=== PATIENT | male | born 1995 | race African-American/Black ===

== ENCOUNTER 2019-08-10 08:43 | Emergency (ER) | payer MEDICAID ==
[~2019-08-10] VITALS: Ht 177.8 cm; Wt 100.0 kg
[2019-08-10 09:30] LABS: BASOPHILS % 0.7 % (0.0-2.0); EOSINOPHILS % 0.3 % (0.0-5.0); HEMATOCRIT. 42.3 % (42.0-52.0); HEMOGLOBIN. 14.4 g/dL (14.0-18.0); LYMPHOCYTES % 27.8 % (20.0-50.0); MEAN CORPUSCULAR HEMOGLOBIN 27.8 pg (28.0-32.0); MEAN CORPUSCULAR VOLUME 81.8 fL (80.0-94.0); MONOCYTES % 8.2 % (2.0-8.0); PLATELET 229 x1000/uL (130-400); RED BLOOD CELL COUNT 5.17 mill/uL (4.7-6.1); RED CELL DISTRIBUTION WIDTH 13.6 % (11.6-14.6)
[2019-08-10 09:31] LABS: CHLORIDE 107 mEq/L (98-107)
[2019-08-10 09:36] LABS: ETHANOL BLOOD < 10 mg/dL
[2019-08-10] MEDS ORDERED: OLANZAPINE 10MG TABLET PO STA (10:10)
[2019-08-10] MEDS ORDERED: LORAZEPAM 1MG TABLET PO ONE (10:15)
[2019-08-10 10:37] LABS: CLARITY URINE CLEAR (CLEAR); COLOR URINE YELLOW (YELLOW); KETONES URINE 1+ (NEGATIVE); LEUKOCYTE ESTERASE URINE NEGATIVE (NEGATIVE); METHADONE URINE SCREEN NEGATIVE (NEGATIVE); NITRITE URINE NEGATIVE (NEGATIVE); OCCULT BLOOD URINE NEGATIVE (NEGATIVE); OPIATES URINE SCREEN NEGATIVE (NEGATIVE); PHENCYCLIDINE URINE SCREEN NEGATIVE (NEGATIVE); PROTEIN URINE NEGATIVE (NEGATIVE); SPECIFIC GRAVITY URINE 1.019 (1.005-1.030)
[2019-08-10 10:38] LABS: *AMPHETAMINES SCREEN URINE NEGATIVE (NEGATIVE); *BARBITURATES SCREEN URINE NEGATIVE (NEGATIVE); *BENZODIAZEPINES SCREEN URINE NEGATIVE (NEGATIVE); *COCAINE SCREEN URINE NEGATIVE (NEGATIVE); CANNABINOID URINE SCREEN NEGATIVE (NEGATIVE)
[2019-08-10] MEDS ORDERED: OLANZAPINE 10 MG/VIAL IM ONE (22:00)
[2019-08-11] MEDS ORDERED: OLANZAPINE 10MG TABLET PO SCH (09:00)
[2019-08-11 15:55] VITALS: BP 112/66
== END 2019-08-11 15:55 | disposition home or self-care (01) ==
LOC: ER 08:43
DX: F23 Brief psychotic disorder (principal); R44.0 Auditory hallucinations; R41.82 Altered mental status, unspecified; F20.9 Schizophrenia, unspecified; F11.10 Opioid abuse, uncomplicated
CPT/HCPCS: 36415; 80053; 80305; 80320; 81003; 82962; 85025; 99284; J3490; Z7610; G0480

== ENCOUNTER 2019-08-25 10:35 | Emergency (ER) | payer MEDICAID ==
[~2019-08-25] VITALS: Ht 177.8 cm; Wt 70.0 kg
[2019-08-25] MEDS ORDERED: LIDOCAINE HCL/PF 1% 10 MG/ML 5ML VIAL IJ ONE (11:15)
[2019-08-25] MEDS ORDERED: TETANUS, DIPHTHERIA, PERTUSSIS VAC/PF 0.5ML (>7YR OLD) IM ONE (11:15)
[2019-08-25 11:26] LABS: BASOPHILS % 1.1 % (0.0-2.0); EOSINOPHILS % 0.7 % (0.0-5.0); HEMATOCRIT. 42.4 % (42.0-52.0); HEMOGLOBIN. 14.3 g/dL (14.0-18.0); LYMPHOCYTES % 18.5 % (20.0-50.0); MEAN CORPUSCULAR HEMOGLOBIN 27.5 pg (28.0-32.0); MEAN CORPUSCULAR VOLUME 81.5 fL (80.0-94.0); MEAN PLATELET VOLUME 9.7 fl (7.4-10.4); MONOCYTES % 9.6 % (2.0-8.0); NEUTROPHILS % 70.1 % (40.0-76.0); PLATELET 260 x1000/uL (130-400); RED CELL DISTRIBUTION WIDTH 13.8 % (11.6-14.6)
[2019-08-25 11:29] LABS: CHLORIDE 103 mEq/L (98-107)
[2019-08-25 11:34] LABS: ETHANOL BLOOD < 10 mg/dL
[2019-08-25] MEDS ORDERED: OLANZAPINE 5MG TABLET PO STA (12:48)
[2019-08-25 13:09] LABS: CLARITY URINE CLEAR (CLEAR); COLOR URINE YELLOW (YELLOW); KETONES URINE 3+ (NEGATIVE); LEUKOCYTE ESTERASE URINE TRACE (NEGATIVE); NITRITE URINE NEGATIVE (NEGATIVE); OCCULT BLOOD URINE NEGATIVE (NEGATIVE); PROTEIN URINE TRACE (NEGATIVE); SPECIFIC GRAVITY URINE 1.039 (1.005-1.030)
[2019-08-25 14:00] LABS: *AMPHETAMINES SCREEN URINE NEGATIVE (NEGATIVE); *BARBITURATES SCREEN URINE NEGATIVE (NEGATIVE); *BENZODIAZEPINES SCREEN URINE NEGATIVE (NEGATIVE)
[2019-08-25 14:01] LABS: *COCAINE SCREEN URINE NEGATIVE (NEGATIVE); CANNABINOID URINE SCREEN NEGATIVE (NEGATIVE); METHADONE URINE SCREEN NEGATIVE (NEGATIVE); OPIATES URINE SCREEN NEGATIVE (NEGATIVE); PHENCYCLIDINE URINE SCREEN NEGATIVE (NEGATIVE)
[2019-08-25] MEDS ORDERED: OLANZAPINE 10 MG/VIAL IM ONE (14:30)
[2019-08-26 12:45] VITALS: BP 120/60
== END 2019-08-26 13:15 | disposition home or self-care (01) ==
LOC: ER 10:35
DX: S61.411A Laceration without foreign body of right hand, initial encounter (principal); F23 Brief psychotic disorder; W22.8XXA Striking against or struck by other objects, initial encounter; W25.XXXA Contact with sharp glass, initial encounter; Y93.89 Activity, other specified; Y92.018 Other place in single-family (private) house as the place of occurrence of the external cause
CPT/HCPCS: 12002; 36415; 73130; 80053; 80305; 80320; 81003; 85025; 90471; 90715; 96372; 99285; A4217; J3490; Z7610; G0480

== ENCOUNTER 2020-06-28 20:45 | Emergency (ER) | payer MEDICAID ==
[~2020-06-28] VITALS: Ht 188 cm; Wt 84.0 kg
[2020-06-28 21:49] LABS: BASOPHILS % 1.3 % (0.0-2.0); EOSINOPHILS % 0.5 % (0.0-5.0); HEMATOCRIT. 38.5 % (42.0-52.0); HEMOGLOBIN. 12.9 g/dL (14.0-18.0); LYMPHOCYTES % 27.9 % (20.0-50.0); MEAN CORPUSCULAR HEMOGLOBIN 27.4 pg (28.0-32.0); MEAN CORPUSCULAR VOLUME 81.7 fL (80.0-94.0); MEAN PLATELET VOLUME 9.3 fl (7.4-10.4); MONOCYTES % 8.7 % (2.0-8.0); NEUTROPHILS % 61.6 % (40.0-76.0); PLATELET 229 x1000/uL (130-400); RED BLOOD CELL COUNT 4.72 mill/uL (4.7-6.1)
[2020-06-28 21:54] LABS: CLARITY URINE CLEAR (CLEAR); COLOR URINE DARK YELLOW (YELLOW); KETONES URINE 2+ (NEGATIVE); LEUKOCYTE ESTERASE URINE TRACE (NEGATIVE); NITRITE URINE NEGATIVE (NEGATIVE); OCCULT BLOOD URINE NEGATIVE (NEGATIVE); PH URINE 5.5 (4.5-8.0); PROTEIN URINE TRACE (NEGATIVE); SPECIFIC GRAVITY URINE 1.035 (1.005-1.030)
[2020-06-28 21:58] LABS: CHLORIDE 107 mEq/L (98-107)
[2020-06-28 22:00] LABS: INR 1.1; PROTHROMBIN TIME 11.4 sec (9.6-11.0)
[2020-06-28 22:02] LABS: ETHANOL BLOOD < 10 mg/dL
[2020-06-28 22:06] LABS: CREATINE KINASE 248 IU/L (39-308)
[2020-06-28 22:25] LABS: *AMPHETAMINES SCREEN URINE NEGATIVE (NEGATIVE); *BARBITURATES SCREEN URINE NEGATIVE (NEGATIVE); *BENZODIAZEPINES SCREEN URINE NEGATIVE (NEGATIVE); *COCAINE SCREEN URINE NEGATIVE (NEGATIVE); CANNABINOID URINE SCREEN NEGATIVE (NEGATIVE); PHENCYCLIDINE URINE SCREEN NEGATIVE (NEGATIVE)
[2020-06-28 22:26] LABS: METHADONE URINE SCREEN NEGATIVE (NEGATIVE); OPIATES URINE SCREEN NEGATIVE (NEGATIVE)
[2020-06-29] MEDS ORDERED: OLANZAPINE 5MG TABLET ODT PO ONE
[2020-06-29 17:00] VITALS: BP 120/73
== END 2020-06-29 16:55 | disposition home or self-care (01) ==
LOC: ER 20:45
DX: R44.0 Auditory hallucinations (principal); E87.6 Hypokalemia
CPT/HCPCS: 36415; 71045; 80053; 80305; 80307; 80320; 80329; 81003; 82140; 82550; 83605; 84443; 85025; 93005; 99285; G0480

== ENCOUNTER 2020-08-08 20:10 | Emergency (ER) | payer MEDICAID ==
[~2020-08-08] VITALS: Ht 180.3 cm; Wt 91.0 kg
[2020-08-08 21:17] LABS: BASOPHILS % 0.5 % (0.0-2.0); EOSINOPHILS % 0.8 % (0.0-5.0); HEMATOCRIT. 37.9 % (42.0-52.0); HEMOGLOBIN. 12.9 g/dL (14.0-18.0); LYMPHOCYTES % 27.5 % (20.0-50.0); MEAN CORPUSCULAR HEMOGLOBIN 28.3 pg (28.0-32.0); MEAN CORPUSCULAR VOLUME 82.7 fL (80.0-94.0); MEAN PLATELET VOLUME 9.5 fl (7.4-10.4); MONOCYTES % 8.9 % (2.0-8.0); NEUTROPHILS % 62.3 % (40.0-76.0); PLATELET 268 x1000/uL (130-400); RED BLOOD CELL COUNT 4.58 mill/uL (4.7-6.1)
[2020-08-08 21:19] LABS: CHLORIDE 105 mEq/L (98-107)
[2020-08-08 21:24] LABS: ETHANOL BLOOD < 10 mg/dL
[2020-08-08 22:05] LABS: CLARITY URINE CLEAR (CLEAR); COLOR URINE YELLOW (YELLOW); KETONES URINE TRACE (NEGATIVE); LEUKOCYTE ESTERASE URINE NEGATIVE (NEGATIVE); NITRITE URINE NEGATIVE (NEGATIVE); OCCULT BLOOD URINE NEGATIVE (NEGATIVE); PH URINE 5.5 (4.5-8.0); PROTEIN URINE NEGATIVE (NEGATIVE); SPECIFIC GRAVITY URINE 1.036 (1.005-1.030)
[2020-08-08 22:18] LABS: *AMPHETAMINES SCREEN URINE NEGATIVE (NEGATIVE); *BARBITURATES SCREEN URINE NEGATIVE (NEGATIVE); *BENZODIAZEPINES SCREEN URINE NEGATIVE (NEGATIVE); *COCAINE SCREEN URINE NEGATIVE (NEGATIVE); METHADONE URINE SCREEN NEGATIVE (NEGATIVE); OPIATES URINE SCREEN NEGATIVE (NEGATIVE)
[2020-08-08 22:19] LABS: CANNABINOID URINE SCREEN NEGATIVE (NEGATIVE); PHENCYCLIDINE URINE SCREEN NEGATIVE (NEGATIVE)
[2020-08-08] MEDS ORDERED: LORAZEPAM 2MG/ML CPJ IM STA (23:48)
[2020-08-09] MEDS ORDERED: HALOPERIDOL LACTATE 5MG/ML VIAL IM ONE
[2020-08-09] MEDS ORDERED: OLANZAPINE 10 MG/VIAL IM ONE (03:15)
[2020-08-09 11:44] VITALS: BP 117/59
== END 2020-08-09 11:46 | disposition home or self-care (01) ==
LOC: ER 20:10
DX: T42.6X2A Poisoning by other antiepileptic and sedative-hypnotic drugs, intentional self-harm, initial encounter (principal); F20.9 Schizophrenia, unspecified; Z78.1 Physical restraint status; Y92.018 Other place in single-family (private) house as the place of occurrence of the external cause
CPT/HCPCS: 36415; 80053; 80305; 80307; 80320; 80329; 81003; 85025; 93005; 96372; 99285; J1630; J2060; J3490; G0480

== ENCOUNTER 2022-02-10 19:06 | Emergency (ER) | payer MEDICAID ==
[~2022-02-10] VITALS: Ht 177.8 cm; Wt 91.0 kg
[2022-02-10] MEDS ORDERED: TETANUS, DIPHTHERIA, PERTUSSIS VAC/PF 0.5ML (>10YR OLD) IM ONE (20:15)
[2022-02-10 21:15] LABS: BASOPHILS % 0.7 % (0.0-2.0); EOSINOPHILS % 0.3 % (0.0-5.0); HEMATOCRIT. 42.3 % (42.0-52.0); HEMOGLOBIN. 14.5 g/dL (14.0-18.0); LYMPHOCYTES % 13.1 % (20.0-50.0); MEAN CORPUSCULAR HEMOGLOBIN 27.7 pg (28.0-32.0); MEAN CORPUSCULAR VOLUME 80.9 fL (80.0-94.0); MEAN PLATELET VOLUME 9.6 fl (7.4-10.4); MONOCYTES % 7.1 % (2.0-8.0); NEUTROPHILS % 78.8 % (40.0-76.0); PLATELET 228 x1000/uL (130-400); RED BLOOD CELL COUNT 5.23 mill/uL (4.7-6.1)
[2022-02-10 21:21] LABS: CHLORIDE 106 mEq/L (98-107)
[2022-02-10 21:30] LABS: CREATINE KINASE 405 IU/L (39-308)
[2022-02-11] MEDS ORDERED: AMOX-424 MT (00:55)
[2022-02-11] MEDS: AMOXICILLIN/POTASSIUM CLAVULANATE 875/125MG TAB PO ONE ×2 (01:00→03:43)
[2022-02-11 04:45] VITALS: BP 128/78
== END 2022-02-11 05:02 | disposition home or self-care (01) ==
LOC: ER 19:06
DX: S09.8XXA Other specified injuries of head, initial encounter (principal); S10.91XA Abrasion of unspecified part of neck, initial encounter; S60.511A Abrasion of right hand, initial encounter; S60.512A Abrasion of left hand, initial encounter; F20.9 Schizophrenia, unspecified; Z87.828 Personal history of other (healed) physical injury and trauma; Y08.02XA Assault by strike by baseball bat, initial encounter; Y93.89 Activity, other specified; Y92.89 Other specified places as the place of occurrence of the external cause
CPT/HCPCS: 36415; 73130; 80053; 80307; 80329; 82550; 85025; 90471; 90715; 99285

== ENCOUNTER 2022-12-26 15:51 | Emergency (ER) | payer MEDICAID, OTHER ==
[~2022-12-26] VITALS: Ht 185.4 cm; Wt 99.0 kg
[~2022-12-26 15:51] MED LIST: AMOX-424 MT
[2022-12-26] MEDS ORDERED: IBUPROFEN 400MG TABLET PO ONE (19:15)
[2022-12-26 20:38] LABS: BASOPHILS % 0.5 % (0.0-2.0); EOSINOPHILS % 0.3 % (0.0-5.0); HEMATOCRIT. 39.9 % (42.0-52.0); HEMOGLOBIN. 13.4 g/dL (14.0-18.0); LYMPHOCYTES % 19.1 % (20.0-50.0); MEAN CORPUSCULAR HEMOGLOBIN 27.9 pg (28.0-32.0); MEAN CORPUSCULAR VOLUME 82.8 fL (80.0-94.0); MONOCYTES % 12.8 % (2.0-8.0); NEUTROPHILS % 67.3 % (40.0-76.0); PLATELET 183 x1000/uL (130-400); RED BLOOD CELL COUNT 4.81 mill/uL (4.7-6.1); RED CELL DISTRIBUTION WIDTH 13.5 % (11.6-14.6)
[2022-12-26 20:43] LABS: CHLORIDE 101 mEq/L (98-107)
[2022-12-26] MEDS ORDERED: IBUP-2028 MT (21:21)
[2022-12-26 21:51] VITALS: BP 125/86
== END 2022-12-26 21:57 | disposition home or self-care (01) ==
LOC: ER 15:51
DX: R07.89 Other chest pain (principal); M79.661 Pain in right lower leg; M79.662 Pain in left lower leg; F20.9 Schizophrenia, unspecified
CPT/HCPCS: 36415; 71045; 80053; 83880; 84484; 85025; 85379; 93005; 93970; 99285

== ENCOUNTER 2023-12-17 15:22 | Emergency (ER) | payer MEDICAID, OTHER ==
[~2023-12-17] VITALS: Ht 188 cm; Wt 110.0 kg
[~2023-12-17 15:22] MED LIST changes: +IBUP-2028 MT
[2023-12-17 15:28] VITALS: O2SAT 96
[2023-12-17] MEDS ORDERED: LIDOCAINE HCL/PF 1% 10 MG/ML 5ML VIAL INFIL ONE (16:00)
[2023-12-17] MEDS ORDERED: SULF1TAB48 MT (17:33)
[2023-12-17] MEDS ORDERED: CEPH500T MT (17:33)
[2023-12-17 17:59] VITALS: BP 113/78; PULSE 88; RESP 18; TEMP 98.7
== END 2023-12-17 17:59 | disposition home or self-care (01) ==
LOC: ER 15:22
DX: L02.01 Cutaneous abscess of face (principal)
CPT/HCPCS: 99283; J3490; Z7610

== ENCOUNTER 2024-02-23 03:02 | Inpatient (IN) | payer OTHER ==
[~2024-02-23] VITALS: Ht 185.4 cm; Wt 130.8 kg
[~2024-02-23 03:02] MED LIST changes: +CEPH500T MT; +SULF1TAB48 MT
[2024-02-23 03:57] LABS: BASOPHILS % 0.9 % (0.0-2.0); EOSINOPHILS % 0.8 % (0.0-5.0); HEMATOCRIT. 42.2 % (42.0-52.0); HEMOGLOBIN. 14.1 g/dL (14.0-18.0); MEAN CORPUSCULAR HEMOGLOBIN 27.7 pg (28.0-32.0); MEAN CORPUSCULAR HGB CONC 33.5 g/dL (31.0-37.0); MEAN CORPUSCULAR VOLUME 82.7 fL (80.0-94.0); MEAN PLATELET VOLUME 9.6 fl (7.4-10.4); NEUTROPHILS % 48.3 % (40.0-76.0); PLATELET 285 x1000/uL (130-400); RED CELL DISTRIBUTION WIDTH 13.8 % (11.6-14.6); WHITE BLOOD COUNT 8.3 x1000/uL (4.5-11.0)
[2024-02-23] MEDS: ONDANSETRON HCL 4MG/2ML INJ IV PRN (03:57)
[2024-02-23] MEDS: SODIUM CHLORIDE 0.9% 1,000 ML IV ONE (03:57)
[2024-02-23] MEDS: ACTIVATED CHARCOAL 50 G/240 ML TUBE PO ONE (03:58)
[2024-02-23 04:10] LABS: INR 0.9; PROTHROMBIN TIME 10.5 sec (9.6-11.0)
[2024-02-23 04:18] LABS: ACETAMINOPHEN < 2 ug/mL (10-30); ALANINE AMINOTRANSFERASE 51 IU/L (10-49); ALBUMIN 4.7 g/dL (3.2-4.8); ASPARTATE AMINOTRANSFERASE 28 IU/L (<34); BILIRUBIN TOTAL 0.5 mg/dL (0.1-1.0); CALCIUM 9.5 mg/dL (8.7-10.4); CARBON DIOXIDE 25 mEq/L (21-32); CHLORIDE 108 mEq/L (98-107); CREATININE 0.9 mg/dL (0.6-1.3); GLUCOSE 104 mg/dL (70-105); POTASSIUM 3.5 mEq/L (3.5-5.1); PROTEIN TOTAL 8.3 g/dL (6.0-8.3); SODIUM 140 mEq/L (136-145); UREA NITROGEN BLOOD 7 mg/dL (9-23)
[2024-02-23] MEDS: LORAZEPAM 2MG/ML INJ ONE (04:18)
[2024-02-23] MEDS: LEVETIRACETAM 1000MG PREMIX 100 ML IV ONE (04:20)
[2024-02-23 04:23] LABS: ETHANOL BLOOD < 10 mg/dL (<10)
[2024-02-23] MEDS: LORAZEPAM 2MG/ML INJ IV ONE (04:23)
[2024-02-23 04:24] LABS: VALPROIC ACID 102.8 ug/mL (50-100)
[2024-02-23 05:03] LABS: BG BASE EXCESS -12.5 mmol/L (-2.0-2.0); BG CARBOXYHEMOGLOBIN 0.2 % (0.5-1.5); BG DEOXYHEMOGLOBIN 0.2 % (0.0-5.0); BG FRACTION INSPIRED OXYGEN 100; BG HCO3 ACT 15.4 mmol/L (22.0-26.0); BG METHEMOGLOBIN 0.5 % (0.0-1.5); BG OXYGEN SATURATION 99.8 % (92.0-98.5); BG OXYHEMOGLOBIN 99.1 % (94.0-97.0); BG PCO2 42.1 mmHg (35.0-45.0); BG PO2 397.4 mmHg (75.0-100.0); BG TOTAL HEMOGLOBIN 14.1 g/dL (12.0-18.0); BG VENT MODE MASK - NRB
[2024-02-23 05:18] LABS: AMMONIA 29 uMol/L (<32)
[2024-02-23 05:23] LABS: CLARITY URINE CLEAR (CLEAR); COLOR URINE YELLOW (YELLOW); GLUCOSE URINE NEGATIVE (NEGATIVE); KETONES URINE 1+ (NEGATIVE); LEUKOCYTE ESTERASE URINE NEGATIVE (NEGATIVE); NITRITE URINE NEGATIVE (NEGATIVE); OCCULT BLOOD URINE TRACE (NEGATIVE); PH URINE 5.5 (4.5-8.0); PROTEIN URINE TRACE (NEGATIVE); SPECIFIC GRAVITY URINE 1.019 (1.005-1.030); UROBILINOGEN URINE 0.2 E.U./dL (0.2-1.0)
[2024-02-23 05:31] LABS: *AMPHETAMINES SCREEN URINE NEGATIVE (NEGATIVE); *BARBITURATES SCREEN URINE NEGATIVE (NEGATIVE); *BENZODIAZEPINES SCREEN URINE NEGATIVE (NEGATIVE); *COCAINE SCREEN URINE NEGATIVE (NEGATIVE); CANNABINOID URINE SCREEN NEGATIVE (NEGATIVE); ECSTASY MDMA SCREEN URINE NEGATIVE (NEGATIVE); METHADONE URINE SCREEN Neg (NEGATIVE); OPIATES URINE SCREEN NEGATIVE (NEGATIVE); PHENCYCLIDINE URINE SCREEN NEGATIVE (NEGATIVE)
[2024-02-23 06:03] LABS: RBC URINE 0-2 /hpf (0-2); SQUAMOUS EPITHELIAL CELL URINE NONE SEEN /lpf (RARE/1+); WBC URINE 0-2 /hpf (0-2)
[2024-02-23 06:04] LABS: BACTERIA URINE NONE SEEN
[2024-02-23 11:37] LABS: BG BASE EXCESS -3.3 mmol/L (-2.0-2.0); BG CARBOXYHEMOGLOBIN 0.3 % (0.5-1.5); BG DEOXYHEMOGLOBIN 1.1 % (0.0-5.0); BG FRACTION INSPIRED OXYGEN 32; BG HCO3 ACT 21.6 mmol/L (22.0-26.0); BG METHEMOGLOBIN 0.2 % (0.0-1.5); BG OXYGEN SATURATION 98.9 % (92.0-98.5); BG OXYHEMOGLOBIN 98.4 % (94.0-97.0); BG PCO2 38.4 mmHg (35.0-45.0); BG PH 7.368 (7.350-7.450); BG PO2 165.4 mmHg (75.0-100.0); BG SAMPLE SITE RIGHT RADIAL; BG TOTAL HEMOGLOBIN 14.5 g/dL (12.0-18.0); BG VENT MODE NASAL CANNULA
[2024-02-23 15:32] LABS: AMMONIA 56 uMol/L (<32)
[2024-02-23 20:31] LABS: AMMONIA 27 uMol/L (<32)
[2024-02-24 11:00] VITALS: BP 125/66; PULSE 88; RESP 18; TEMP 98.2
[2024-02-24] MEDS ORDERED: ONDANSETRON HCL 4MG/2ML INJ IV PRN (11:00)
[2024-02-24 11:30] VITALS: BP 129/87; PULSE 108; RESP 18; TEMP 98.2
[2024-02-24] MEDS: LEVETIRACETAM 500MG TABLET PO SCH (13:12)
[2024-02-24 16:00] VITALS: BP 118/65; PULSE 112; RESP 18; TEMP 98.2
[2024-02-24 20:00] VITALS: BP 127/52; PULSE 102; RESP 20; TEMP 97.3
[2024-02-25] VITALS: BP 146/74; PULSE 109; RESP 20; TEMP 97.9
[2024-02-25 04:00] VITALS: BP 130/69; PULSE 96; RESP 20; TEMP 97.3
[2024-02-25 08:00] VITALS: BP 128/74; PULSE 95; RESP 19; TEMP 97.6
[2024-02-25] MEDS ORDERED: QUET50TA PO (08:02)
[2024-02-25] MEDS ORDERED: MIRT7.5T11 PO (08:02)
[2024-02-25] MEDS ORDERED: OLAN5TAB3 PO (08:02)
[2024-02-25] MEDS ORDERED: PNEUMOCOCCAL 23-VAL P-SAC VAC 0.5 ML IM ONE (09:00)
[2024-02-25 12:00] VITALS: BP 142/81; PULSE 89; RESP 19; TEMP 97.8
[2024-02-25 16:00] VITALS: BP 113/64; RESP 19; TEMP 97.5
[2024-02-25 20:00] VITALS: BP 135/88; PULSE 92; RESP 20; TEMP 97.7
[2024-02-26] VITALS: BP 123/77; PULSE 92; RESP 20; TEMP 96.4
[2024-02-26 04:00] VITALS: BP 116/67; PULSE 89; RESP 20; TEMP 98
[2024-02-26 08:00] VITALS: BP 133/70; PULSE 87; RESP 20; TEMP 98.1
[2024-02-26 12:00] VITALS: BP 131/70; PULSE 94; RESP 20; TEMP 98.2
[2024-02-26 16:00] VITALS: BP 127/82; PULSE 89; RESP 20; TEMP 98
[2024-02-26 20:00] VITALS: BP 128/78; PULSE 87; RESP 18; TEMP 97.5
[2024-02-27] VITALS: BP 124/76; PULSE 88; RESP 20; TEMP 97
[2024-02-27 04:00] VITALS: BP 126/70; PULSE 71; RESP 18; TEMP 97.9
[2024-02-27 10:00] VITALS: BP 128/79; PULSE 77; RESP 20; TEMP 98
[2024-02-27 12:00] VITALS: BP 114/68; PULSE 78; RESP 18; TEMP 97.5
[2024-02-27] MEDS: QUETIAPINE FUMARATE 25MG TABLET PO NR (17:42)
[2024-02-27] MEDS: LORAZEPAM 1MG TABLET PO NR (17:42)
[2024-02-27 20:00] VITALS: BP 141/90; PULSE 105; RESP 20; TEMP 97.8
[2024-02-27 20:45] VITALS: BP 141/90; PULSE 105; RESP 20; TEMP 97.8
[2024-02-27] MEDS: QUETIAPINE FUMARATE 25MG TABLET PO SCH (21:13)
[2024-02-28] VITALS: BP 137/82; PULSE 84; RESP 20; TEMP 97.6
[2024-02-28 04:00] VITALS: BP 103/65; PULSE 92; RESP 20; TEMP 98.1
[2024-02-28 08:00] VITALS: BP 132/89; PULSE 104; RESP 20; TEMP 97.7
[2024-02-28 12:00] VITALS: BP 128/88; PULSE 90; RESP 20; TEMP 97.2
[2024-02-28] MEDS: LORAZEPAM 0.5MG TABLET PO PRN (15:47)
[2024-02-28 16:00] VITALS: BP 112/68; PULSE 100; RESP 19; TEMP 98.2
[2024-02-28 20:00] VITALS: BP 131/95; PULSE 103; RESP 18; TEMP 97.7
[2024-02-28] MEDS: MIRTAZAPINE 15MG TABLET PO SCH (23:30)
[2024-02-29 00:03] VITALS: BP 130/95; PULSE 103; RESP 19; TEMP 98.2
[2024-02-29 08:00] VITALS: BP 116/77; PULSE 97; RESP 18; TEMP 96.3
[2024-02-29] MEDS: HALOPERIDOL LACTATE 5MG/ML VIAL IM NR (12:30)
[2024-02-29] MEDS: ACETAMINOPHEN 325MG TABLET PO PRN (15:22)
[2024-02-29 15:34] VITALS: BP 140/80; PULSE 107; TEMP 98; O2SAT 98
== END 2024-02-29 14:00 | disposition home or self-care (01) | DRG 817 ==
LOC: ER 03:02 → MICUSO 05:44 → EDBEDREQ 05:45 → EDBEDREQSVC 05:45 → EDBEDREQTM 05:45 → EDBEDREQSVC 22:12 → 7EST 02-24 10:03 → 6WST 02-27 10:43
PROVIDERS: ADMIT Internal Medicine; ATTEND Internal Medicine
DX: T42.6X2A Poisoning by other antiepileptic and sedative-hypnotic drugs, intentional self-harm, initial encounter (principal); F20.9 Schizophrenia, unspecified; I10 Essential (primary) hypertension; Z20.822 Contact with and (suspected) exposure to COVID-19; Z79.899 Other long term (current) drug therapy; Y92.89 Other specified places as the place of occurrence of the external cause
CPT/HCPCS: 36415; 36600; 71045; 80053; 80165; 80305; 80307; 80320; 80329; 81003; 82140; 82375; 82805; 83605; 83930; 85025; 87426; 93005; 99291; J1630; J1953; J2060; J2405; J7030; G0480

== ENCOUNTER 2024-02-29 20:34 | Emergency (ER) | payer OTHER ==
[~2024-02-29] VITALS: Ht 185.4 cm; Wt 100.0 kg
[~2024-02-29 20:34] MED LIST changes: +MIRT7.5T11 PO; +OLAN5TAB3 PO; +QUET50TA PO
[2024-02-29 21:19] LABS: BASOPHILS % 0.7 % (0.0-2.0); EOSINOPHILS % 0.3 % (0.0-5.0); HEMATOCRIT. 43.3 % (42.0-52.0); HEMOGLOBIN. 14.5 g/dL (14.0-18.0); LYMPHOCYTES % 29.7 % (20.0-50.0); MEAN CORPUSCULAR HEMOGLOBIN 27.2 pg (28.0-32.0); MEAN CORPUSCULAR HGB CONC 33.4 g/dL (31.0-37.0); MEAN CORPUSCULAR VOLUME 81.3 fL (80.0-94.0); MEAN PLATELET VOLUME 10.4 fl (7.4-10.4); MONOCYTES % 6.6 % (2.0-8.0); NEUTROPHILS % 62.7 % (40.0-76.0); PLATELET 265 x1000/uL (130-400); RED BLOOD CELL COUNT 5.33 mill/uL (4.7-6.1); RED CELL DISTRIBUTION WIDTH 14.4 % (11.6-14.6); WHITE BLOOD COUNT 13.8 x1000/uL (4.5-11.0)
[2024-02-29 21:23] LABS: CHLORIDE 103 mEq/L (98-107); POTASSIUM 4.2 mEq/L (3.5-5.1); SODIUM 136 mEq/L (136-145)
[2024-02-29 21:24] LABS: CARBON DIOXIDE 26 mEq/L (21-32)
[2024-02-29 21:25] LABS: CALCIUM 9.3 mg/dL (8.7-10.4)
[2024-02-29 21:30] LABS: GLUCOSE 110 mg/dL (70-105); UREA NITROGEN BLOOD 15 mg/dL (9-23)
[2024-02-29 21:31] LABS: ACETAMINOPHEN < 2 ug/mL (10-30); ALANINE AMINOTRANSFERASE 39 IU/L (10-49); ASPARTATE AMINOTRANSFERASE 32 IU/L (<34)
[2024-02-29 21:32] LABS: ALBUMIN 4.5 g/dL (3.2-4.8); BILIRUBIN TOTAL 0.5 mg/dL (0.1-1.0); PROTEIN TOTAL 7.9 g/dL (6.0-8.3)
[2024-02-29 21:32] LABS: AMMONIA < 17 uMol/L (<32)
[2024-02-29 21:37] LABS: ETHANOL BLOOD < 10 mg/dL (<10)
[2024-02-29 23:20] LABS: *AMPHETAMINES SCREEN URINE NEGATIVE (NEGATIVE); *BARBITURATES SCREEN URINE NEGATIVE (NEGATIVE); *BENZODIAZEPINES SCREEN URINE NEGATIVE (NEGATIVE); *COCAINE SCREEN URINE NEGATIVE (NEGATIVE); CANNABINOID URINE SCREEN NEGATIVE (NEGATIVE); ECSTASY MDMA SCREEN URINE NEGATIVE (NEGATIVE); METHADONE URINE SCREEN Neg (NEGATIVE); OPIATES URINE SCREEN NEGATIVE (NEGATIVE); PHENCYCLIDINE URINE SCREEN NEGATIVE (NEGATIVE)
[2024-02-29] MEDS ORDERED: DIPHENHYDRAMINE 50MG CAPSULE PO ONE (23:30)
[2024-02-29] MEDS: DIPHENHYDRAMINE 25MG CAPSULE PO NR (23:45)
[2024-02-29] MEDS: QUETIAPINE FUMARATE 25MG TABLET PO SCH (23:45)
[2024-03-01] MEDS: DIVALPROEX SODIUM 250MG DR TABLET PO SCH (09:00)
[2024-03-01] MEDS: OLANZAPINE 5MG TABLET PO SCH (09:00)
[2024-03-01] MEDS: ONDANSETRON HCL 4MG TABLET PO ONE (09:15)
[2024-03-01] MEDS: HALOPERIDOL LACTATE 5MG/ML VIAL IM ONE (17:08)
[2024-03-01 18:59] VITALS: O2SAT 100
[2024-03-01] MEDS: LORAZEPAM 2MG/ML INJ IM ONE (19:16)
[2024-03-01] MEDS: MIRTAZAPINE 15MG TABLET PO SCH (21:59)
[2024-03-02] MEDS: LORAZEPAM 2MG/ML INJ IM ONE (00:44)
[2024-03-02] MEDS: DIPHENHYDRAMINE 50MG/ML VIAL IM STA (00:44)
[2024-03-02] MEDS: HALOPERIDOL LACTATE 5MG/ML VIAL IM ONE (00:44)
[2024-03-02 14:03] VITALS: BP 129/83; PULSE 99; RESP 16; TEMP 98.4
== END 2024-03-02 14:20 ==
LOC: ER 20:34
DX: R45.851 Suicidal ideations (principal); R45.850 Homicidal ideations; F20.9 Schizophrenia, unspecified; Z79.899 Other long term (current) drug therapy; Z20.822 Contact with and (suspected) exposure to COVID-19
CPT/HCPCS: 80053; 80305; 80307; 80329; 80320; 82140; 83605; 80165; 85025; 36415; 99285; 87426; 96372; Q0163; Q0162; J1630 ×2; J1200; J2060; G0480

== ENCOUNTER 2024-05-20 23:37 | Emergency (ER) | payer OTHER ==
[~2024-05-20] VITALS: Ht 188 cm; Wt 85.0 kg
[2024-05-20 23:41] VITALS: O2SAT 98
[2024-05-21 02:07] LABS: BASOPHILS % 0.9 % (0.0-2.0); EOSINOPHILS % 0.3 % (0.0-5.0); HEMATOCRIT. 40.1 % (42.0-52.0); HEMOGLOBIN. 13.5 g/dL (14.0-18.0); LYMPHOCYTES % 24.3 % (20.0-50.0); MEAN CORPUSCULAR HEMOGLOBIN 27.6 pg (28.0-32.0); MEAN CORPUSCULAR HGB CONC 33.7 g/dL (31.0-37.0); MEAN CORPUSCULAR VOLUME 81.8 fL (80.0-94.0); MEAN PLATELET VOLUME 9.6 fl (7.4-10.4); MONOCYTES % 8.7 % (2.0-8.0); NEUTROPHILS % 65.8 % (40.0-76.0); PLATELET 281 x1000/uL (130-400); WHITE BLOOD COUNT 10.7 x1000/uL (4.5-11.0)
[2024-05-21 02:16] LABS: CARBON DIOXIDE 27 mEq/L (21-32); CHLORIDE 108 mEq/L (98-107); POTASSIUM 3.5 mEq/L (3.5-5.1); SODIUM 141 mEq/L (136-145)
[2024-05-21 02:17] LABS: CALCIUM 9.4 mg/dL (8.7-10.4)
[2024-05-21 02:21] LABS: CREATININE 1.1 mg/dL (0.6-1.3)
[2024-05-21 02:22] LABS: GLUCOSE 82 mg/dL (70-105); UREA NITROGEN BLOOD 13 mg/dL (9-23)
[2024-05-21 02:23] LABS: ACETAMINOPHEN < 2 ug/mL (10-30); ALANINE AMINOTRANSFERASE 31 IU/L (10-49); ASPARTATE AMINOTRANSFERASE 21 IU/L (<34)
[2024-05-21 02:24] LABS: ALBUMIN 4.4 g/dL (3.2-4.8); BILIRUBIN DIRECT 0.2 mg/dL (<=3.0); BILIRUBIN TOTAL 0.5 mg/dL (0.1-1.0); PROTEIN TOTAL 7.2 g/dL (6.0-8.3)
[2024-05-21 02:25] LABS: ETHANOL BLOOD < 10 mg/dL (<10)
[2024-05-21 02:26] LABS: PROTHROMBIN TIME 10.7 sec (9.6-11.0)
[2024-05-21 02:52] LABS: CLARITY URINE CLEAR (CLEAR); COLOR URINE DARK YELLOW (YELLOW); GLUCOSE URINE NEGATIVE (NEGATIVE); KETONES URINE TRACE (NEGATIVE); LEUKOCYTE ESTERASE URINE TRACE (NEGATIVE); NITRITE URINE NEGATIVE (NEGATIVE); OCCULT BLOOD URINE NEGATIVE (NEGATIVE); PROTEIN URINE 1+ (NEGATIVE); SPECIFIC GRAVITY URINE 1.046 (1.005-1.030)
[2024-05-21 03:00] LABS: *AMPHETAMINES SCREEN URINE NEGATIVE (NEGATIVE); *BARBITURATES SCREEN URINE NEGATIVE (NEGATIVE); *BENZODIAZEPINES SCREEN URINE NEGATIVE (NEGATIVE); *COCAINE SCREEN URINE NEGATIVE (NEGATIVE); METHADONE URINE SCREEN NEGATIVE (NEGATIVE); OPIATES URINE SCREEN NEGATIVE (NEGATIVE)
[2024-05-21 03:01] LABS: CANNABINOID URINE SCREEN NEGATIVE (NEGATIVE); ECSTASY MDMA SCREEN URINE NEGATIVE (NEGATIVE); PHENCYCLIDINE URINE SCREEN NEGATIVE (NEGATIVE)
[2024-05-21] MEDS: ONDANSETRON HCL 4MG/2ML INJ IV ONE (03:05)
[2024-05-21] MEDS: SODIUM CHLORIDE 0.9% 1,000 ML IV ONE (03:05)
[2024-05-21 03:17] LABS: BACTERIA URINE TRACE; MUCUS URINE 1+ /lpf (NONE/TRACE); RBC URINE 0-2 /hpf (0-2); SQUAMOUS EPITHELIAL CELL URINE 1+ /lpf (RARE/1+); WBC URINE 0-2 /hpf (0-2)
[2024-05-21] MEDS: LORAZEPAM 0.5MG TABLET PO ONE (16:00)
[2024-05-21] MEDS: QUETIAPINE FUMARATE 50MG TABLET PO SCH (17:58)
[2024-05-22] MEDS ORDERED: DIPHENHYDRAMINE 50MG CAPSULE PO ONE (06:00)
[2024-05-22] MEDS: DIPHENHYDRAMINE 25MG CAPSULE PO NR (06:32)
[2024-05-22 17:59] VITALS: BP 128/73; PULSE 70; RESP 16; TEMP 98.3
[2024-05-22] MEDS: QUETIAPINE FUMARATE 50MG TABLET PO SCH (20:04)
== END 2024-05-22 23:23 | disposition still patient (30) ==
LOC: ER 23:37
DX: R45.851 Suicidal ideations (principal); F12.10 Cannabis abuse, uncomplicated; Z79.899 Other long term (current) drug therapy; Z86.59 Personal history of other mental and behavioral disorders
CPT/HCPCS: 80076; 80305; 80048; 81003; 80307; 80329; 80320; 83605; 83930; 85025; 85610; 36415; 99285; 96374; Z7610 ×2; J2405; J7030; Q0163; G0480

== ENCOUNTER 2025-07-05 14:13 | Emergency (ER) | payer OTHER ==
[~2025-07-05] VITALS: Ht 182.9 cm; Wt 110.0 kg
[2025-07-05 14:15] VITALS: O2SAT 99
[2025-07-05 15:59] LABS: CREATININE 0.9 mg/dL (0.6-1.3)
[2025-07-05 16:00] LABS: ETHANOL BLOOD < 10 mg/dL (<10); UREA NITROGEN BLOOD 12 mg/dL (9-23)
[2025-07-05 16:05] LABS: BASOPHILS % 1.1 % (0.0-2.0); EOSINOPHILS % 0.4 % (0.0-5.0); HEMATOCRIT. 39.7 % (42.0-52.0); HEMOGLOBIN. 13.7 g/dL (14.0-18.0); LYMPHOCYTES % 28.8 % (20.0-50.0); MEAN PLATELET VOLUME 10.6 fl (7.4-10.4); MONOCYTES % 6.5 % (2.0-8.0); NEUTROPHILS % 63.2 % (40.0-76.0); PLATELET 239 x1000/uL (130-400); RED BLOOD CELL COUNT 4.97 mill/uL (4.7-6.1); RED CELL DISTRIBUTION WIDTH 13.9 % (11.6-14.6)
[2025-07-05 18:48] LABS: CLARITY URINE CLEAR (CLEAR); COLOR URINE YELLOW (YELLOW); GLUCOSE URINE NEGATIVE (NEGATIVE); KETONES URINE 1+ (NEGATIVE); LEUKOCYTE ESTERASE URINE NEGATIVE (NEGATIVE); NITRITE URINE NEGATIVE (NEGATIVE); OCCULT BLOOD URINE NEGATIVE (NEGATIVE); PH URINE 5.5 (4.5-8.0); PROTEIN URINE NEGATIVE (NEGATIVE); SPECIFIC GRAVITY URINE 1.027 (1.005-1.030); UROBILINOGEN URINE 1.0 E.U./dL (0.2-1.0)
[2025-07-05 18:57] LABS: *AMPHETAMINES SCREEN URINE NEGATIVE (NEGATIVE); *BARBITURATES SCREEN URINE NEGATIVE (NEGATIVE); *BENZODIAZEPINES SCREEN URINE NEGATIVE (NEGATIVE); *COCAINE SCREEN URINE NEGATIVE (NEGATIVE); CANNABINOID URINE SCREEN NEGATIVE (NEGATIVE); ECSTASY MDMA SCREEN URINE NEGATIVE (NEGATIVE); METHADONE URINE SCREEN NEGATIVE (NEGATIVE); OPIATES URINE SCREEN NEGATIVE (NEGATIVE); PHENCYCLIDINE URINE SCREEN NEGATIVE (NEGATIVE)
[2025-07-05] MEDS: TRAZODONE HCL 50MG TABLET PO SCH (22:03)
[2025-07-05] MEDS: OLANZAPINE 5MG TABLET ODT PO ONE (22:37)
[2025-07-06 19:15] VITALS: BP 157/84; PULSE 89; RESP 20; TEMP 36.7; O2SAT 99
[2025-07-06] MEDS ORDERED: TRAZODONE HCL 50MG TABLET PO SCH (21:00)
[2025-07-06] MEDS ORDERED: OLANZAPINE 5MG TABLET PO SCH (21:00)
== END 2025-07-06 19:48 ==
LOC: ER 14:13
DX: R45.851 Suicidal ideations (principal); F41.9 Anxiety disorder, unspecified; F20.9 Schizophrenia, unspecified; Z20.822 Contact with and (suspected) exposure to COVID-19; Z79.899 Other long term (current) drug therapy; Z98.890 Other specified postprocedural states
CPT/HCPCS: 36415; 80048; 80305; 80307; 80320; 80329; 81003; 85025; 87426; 93005; 99285; G0480